=== PATIENT | female | born 1965 | race African-American/Black ===

== ENCOUNTER 2021-04-04 10:55 | Emergency (ER) | payer BC, SELFPAY ==
--- NOTE | ~2021-04-04 | CT_ITS ---
EXAMINATION: CT brain wo con EXAM DATE: 04/04/2021 12:59 INDICATION: syncope/ seizure . Hit back of head. TECHNIQUE: Spiral CT of the head was performed without contrast. Axial, coronal and sagittal images were reviewed. The dose-length product (DLP) for this examination was 529.67 mGy-cm. The exposure w as tailored according to patient size, and iterative reconstruction (ASIR) was used as additional dos e reduction technique. Without FINDINGS: There is no acute intraparenchymal hemorrhage. No evidence of intraparenchymal brain mass lesion. No evidence of acute infarction. Please note that initial head CT has limited sensitivity f or small or acute infarctions. There is mild periventricular and subcortical hypodensity, nonspecific but probably related to small vessel ischemic disease. There is ventricular prominence out of prop ortion to sulci, central atrophy versus normal pressure hydrocephalus (clinical triad ataxia/gait dis turbance, dementia, urinary incontinence). There is intracranial carotid arteriosclerosis. There a re no extra-axial collections. There is no mass effect or midline shift. The orbits are unremarkabl e. Soft tissue is unremarkable. The visualized sinuses and mastoid air cells are well aerated. IMPRESSION: 1. No acute intracranial findings. 2. Dilated ventricles, NPH versus central atrophy. Reviewed, dictated and finalized at location B. ITURE INSTALLER
--- NOTE | ~2021-04-04 | XR_ITS ---
EXAMINATION: XR chest 2V EXAM DATE: 04/04/2021 12:37 INDICATION: Syncope. TECHNIQUE: Frontal and lateral projections of the chest obtained and reviewed. There is no prior kathrin dy for comparison. FINDINGS: The lungs are clear. There are no pleural effusions. The cardiomediastinal silhouette is within normal limits. There is no pneumothorax suspected. The bones and soft tissues are unremarkab le. IMPRESSION: No acute cardiopulmonary findings. Reviewed, dictated and finalized at location B. TREAT OPERATOR
[2021-04-04 10:55] VITALS: BP 121/76; PULSE 68; RESP 18; TEMP 36.6; O2SAT 100
--- NOTE | 2021-04-04 11:01 | ECG_ITS ---
Measurements Intervals [place] Rate: P: [place]: QRS: QRSD: T: QT: QTc: Interpretive Statements NORMAL SINUS RHYTHM/SINUS ARRHYTHMIA OTHERWISE NORMAL EKG Electronically Signed On 04-06-2021 13:55:53 BOX WORKER by Gentry Arteaga M.D.
[2021-04-04 11:51] LABS: Basophils Absolute Auto 0.1 K/mm3 (0.0-0.1); Basophils Percent Auto 0.7 % (0.2-1.2); Eosinophils Absolute Auto 0.2 K/mm3 (0-0.3); Eosinophils Percent Auto 1.5 % (0-4.4); Hematocrit 45.8 % (37.0-47.0); Hemoglobin 15.3 g/dL (12.0-15.0); Immature Granulocyte Absolute 0.06 K/mm3 (0.00-0.031); Immature Granulocyte Percent A 0.5 % (0-0.5); Lymphocytes Percent Auto 21.5 % (18.3-44.2); Mean Corpuscular HGB Conc 33.4 g/dl (32-36); Mean Corpuscular Hemoglobin 32.6 pg (26-34); Mean Corpuscular Volume 97.7 fl (80-100); Mean Platelet Volume 10.2 fl (7.4-10.4); Monocytes Absolute Auto 0.9 K/mm3 (0.1-0.6); Monocytes Percent Auto 7.2 % (2.6-8.5); Neutrophils Percent Auto 68.6 % (45.5-73.1); Platelet Count Result 276 k/mm3 (150-375); Red Blood Count 4.69 M/mm3 (4.2-5.4); Red Cell Distribution Width 13.7 % (11.5-14.5); White Blood Count 13.1 K/mm3 (4.5-10.0)
[2021-04-04 12:01] VITALS: BP 162/77; PULSE 71
[2021-04-04 12:02] VITALS: BP 132/70; BP 144/76; PULSE 70; PULSE 72
[2021-04-04 12:02] LABS: Alanine Aminotransferase 14 U/L (4-35); Albumin Level 4.2 g/dL (3.5-5.1); Alkaline Phosphatase 103 U/L (38-126); Anion Gap 5 mmol/L (8-16); Aspartate Amino Transferase 24 U/L (14-36); Bilirubin,Total 0.5 mg/dL (0.2-1.3); Blood Urea Nitrogen 11 mg/dL (7-17); Calcium 8.6 mg/dL (8.4-10.2); Carbon Dioxide 28 mmol/L (22-30); Chloride 103 mmol/L (98-107); Estimated CRCL calculation 62 ml/min; Estimated Glomerular Filt Rate > 60; Glucose 98 mg/dL (65-110); Potassium 3.1 mmol/L (3.4-5.0); Sodium 136 mmol/L (137-145)
--- NOTE | 2021-04-04 12:30 | ED.DIZZY ---
HPI - Dizziness General Chief Complaint: Syncope Stated Complaint: syncope Time Seen by Provider: 04/04/21 11:54 Source: patient, family and RN notes reviewed Limitations: no limitations History of Present Illness HPI Narrative: 35-year-old female presents emerge department for evaluation of a syncopal episode. Patient states she did not have breakfast this morning but this is not unusual for her. Patient states while at work she was having onset of feeling flushed and nauseous when she fell to the ground. Coworkers state that there was some seizure-like activity. Patient did possibly bite her tongue. Patient had no loss of bowel or bladder control. Patient states she was slightly confused when she woke up but she did quickly recognize her coworkers. When EMS attempted to set her up patient had a second episode where she felt dizzy and lightheaded. Patient did not have a second syncopal episode. Patient denies any prior cardiac history. Denies any prior history of seizures. Patient states back in 2017 she did have an episode of hydrocephalus and did have a shunt placed. Shunt was subsequently removed. Patient reports that she has had multiple MRIs for follow-up. Patient denies any headache. Patient denies any gait instability. Patient has normal mental status and no urinary incontinence. Related Data Allergies Allergy/AdvReac Type Severity Reaction Status Date / Time amoxicillin Allergy Swelling Verified 04/04/21 11:00 Review of Systems Review of Systems: CONSTITUTIONAL: Denies fever, chills, or sweats. EYES: Denies visual changes, redness, or discharge. ENT: Denies rhinorrhea, congestion, sore throat, or otalgia. CARDIOVASCULAR: Denies chest pain, palpitations, or edema. RESPIRATORY: Denies cough or dyspnea. GASTROINTESTINAL: Denies abdominal pain, nausea, vomiting, or diarrhea. GENITOURINARY: Denies dysuria or hematuria. SKIN: Denies rash or itching. MUSCULOSKELETAL: Denies back pain, joint pain, or myalgia. NEUROLOGIC: Syncopal episode with observed possible seizure-like activity. Did have associated dizziness and lightheadedness. PSYCHIATRIC: Denies anxiety or depression. Exam Narrative: APPEARANCE: Well appearing, no pain, no distress, well-nourished. HEAD: normocephalic, atraumatic. EYES: PERRLA/EOMI, conjunctivae clear. NOSE: Normal no drainage EARS:TMS clear with good light reflex. THROAT: Pharynx clear, no exudate. NECK: Supple. No adenopathy, no masses. RESPIRATORY: Airway patent, respirations nonlabored. Clear to auscultation bilaterally, no rales, rhonchi, wheezing. CARDIOVASCULAR: Regular rate and rhythm without murmurs rubs or gallops. ABDOMINAL: Soft, nontender, nondistended, normal bowel sounds MUSCULOSKELETAL: Moves all extremities. Strength/ROM intact, No edema, No calf tenderness. NEURO: Alert. Cranial nerves II through XII intact. Neurologically intact. Normal coordination SKIN: Warm, dry. Normal Color Course Course Emergency Course: Patient denies any complaints at this time. Patient was updated on the plan for work-up. All questions concerns were addressed. Patient's family was present during this conversation. Head CT showed no acute abnormality. Dr. Branham was consulted for the underlying possibility of seizures. Patient will be started on Keppra. Patient will have an outpatient EEG and have outpatient follow-up with Dr. Branham. Both patient and daughter were updated on the treatment and follow-up plan. All questions and concerns were addressed. Patient was improved and in no distress at time of discharge from the emerge department. Patient had teeth pulled recently and has not been eating and drinking very well. Suspected etiology for this episode is orthostatic hypotension. Due to the possibility of Vital Signs Vital signs: Vital Signs Temperature 97.8 F 04/04/21 10:55 Pulse Rate 68 04/04/21 10:55 Respiratory Rate 18 04/04/21 10:55 Blood Pressure 121/76 04/04/21 10:55 Pul
[2021-04-04 13:25] VITALS: BP 158/93; PULSE 72; RESP 15; O2SAT 100
[2021-04-04 15:31] VITALS: BP 186/98; PULSE 90; RESP 16; O2SAT 100
[2021-04-04] MEDS: levETIRAcetam 1000MG/NACL100ML 1,000 MG/100 ML BAG 400 MG IVPB (15:46)
== END 2021-04-04 16:18 | disposition home or self-care (01) ==
PROVIDERS: Emergency Medicine; Emergency Provider Emergency Medicine
DX: R55 Syncope and collapse (principal); R56.9 Unspecified convulsions; R93.0 Abnormal findings on diagnostic imaging of skull and head, not elsewhere classified
CPT/HCPCS: 36415; 70450; 71046; 80053; 85025; 93005; 96365; 99284; J1953